=== PATIENT | male | born 1995 | race Two or more races ===

== ENCOUNTER 2018-04-09 14:36 | Outpatient (CLI) | payer OTHER ==
--- NOTE | 2018-04-09 17:35 | XRAY Report ---
TWO VIEW CHEST: 04/09/2018 CLINICAL INDICATION: Pruritus. FINDINGS: Frontal and lateral views of the chest demonstrate a normal cardiac silhouette. The lungs are clear. No effusion or pneumothorax is present. IMPRESSION: NORMAL CHEST. TD: 04/09/2018 15:02
[2018-04-13 19:08] LABS: ALBUMIN 4.5 g/dL (3.8-4.8); ALPHA 1 GLOBULIN 0.3 g/dL (0.2-0.3); ALPHA 2 GLOBULIN 0.7 g/dL (0.5-0.9); BETA 1 GLOBULIN 0.5 g/dL (0.4-0.6); BETA 2 GLOBULIN 0.5 g/dL (0.2-0.5); GAMMA GLOBULIN 1.4 g/dL (0.8-1.7)
== END 2018-04-09 14:37 | disposition home or self-care (01) ==
LOC: DI 14:36
PROVIDERS: ATTEND Physician Assistant
DX: L29.8 Other pruritus (principal); L81.4 Other melanin hyperpigmentation; Z71.89 Other specified counseling; L50.3 Dermatographic urticaria
CPT/HCPCS: 36415; 71046; 81599; 82784; 84155; 84165